=== PATIENT | female | born 1990 | race Caucasian/White ===

== ENCOUNTER 2023-10-17 23:24 | Emergency (ER) | payer BC, OTHER ==
[~2023-10-17] VITALS: Ht 180.3 cm; Wt 104.3 kg
[2023-10-18 00:18] VITALS: BP 133/77; TEMP 97.5; O2SAT 98
== END 2023-10-18 00:18 | disposition home or self-care (01) ==
LOC: ER 23:27
DX: S61.210A Laceration without foreign body of right index finger without damage to nail, initial encounter (principal); F32.A Depression, unspecified; W45.8XXA Other foreign body or object entering through skin, initial encounter; Y93.89 Activity, other specified; Y92.89 Other specified places as the place of occurrence of the external cause; Y99.8 Other external cause status
CPT/HCPCS: A4606; A4663

== ENCOUNTER 2025-08-14 17:33 | Emergency (ER) | payer BC, OTHER ==
[~2025-08-14] VITALS: Ht 177.8 cm; Wt 79.8 kg
[2025-08-14 17:59] VITALS: BP 123/79
[2025-08-14 19:10] LABS: PLATELET COUNT (AUTO) 317 K/uL (179-408); RED BLOOD CELL COUNT(AUTO) 4.63 MIL/uL (3.63-4.92); RED CELL DISTRIBUTION WIDTH 12.7 % (12.3-17.7); WHITE BLOOD COUNT (AUTO) 12.9 K/uL (3.8-11.8)
[2025-08-14] MEDS ORDERED: ONDANSETRON 4 MG/2 ML VIAL ONE (19:16)
[2025-08-14 19:19] LABS: CREATININE 0.8 mg/dL (0.6-1.3); SODIUM SERUM 143 mmol/L (136-145); UREA NITROGEN, BLOOD 11 mg/dL (7-18)
[2025-08-14 19:25] LABS: ASPARTATE AMINOTRANSFERASE 14 U/L (15-37); TOTAL PROTEIN, SERUM 7.3 g/dL (6.4-8.2)
[2025-08-14] MEDS: ONDANSETRON 4 MG/2 ML VIAL IV ONE (19:25)
[2025-08-14] MEDS: IV NORMAL SALINE 1000 ML BAG IV ONE (19:25)
[2025-08-14 20:28] VITALS: BP 120/78; O2SAT 99
== END 2025-08-14 20:29 | disposition home or self-care (01) ==
LOC: ER 17:39
DX: F41.0 Panic disorder [episodic paroxysmal anxiety] (principal); R55 Syncope and collapse; R07.9 Chest pain, unspecified; Z88.7 Allergy status to serum and vaccine; Z79.899 Other long term (current) drug therapy
CPT/HCPCS: 99285; 96374; 71045; 96361; 80076; 80048; 83690; 83735; 85025; 84484; 36415; 93005; J2405; J7040; A4606; A4663